=== PATIENT | male | born 1960 | race Caucasian/White ===

== ENCOUNTER 2024-10-30 12:21 | Inpatient (IN) | payer MEDICAID, MEDICARE, OTHER ==
[~2024-10-30] VITALS: Ht 172.7 cm; Wt 105.1 kg
[2024-10-30 13:03] LABS: PLATELET COUNT, AUTOMATED 241 10^3/uL (150-450)
[2024-10-30 13:26] LABS: BARBITURATES URINE NEGATIVE (NEGATIVE)
[2024-10-30 13:27] LABS: AMPHETAMINES LEVEL URINE NEGATIVE (NEGATIVE); BENZODIAZEPINES URINE NEGATIVE (NEGATIVE); CANNABINOIDS URINE NEGATIVE (NEGATIVE); COCAINE METABOLITE URINE NEGATIVE (NEGATIVE); METHADONE URINE NEGATIVE (NEGATIVE); OPIATES URINE NEGATIVE (NEGATIVE); PHENCYCLIDINE URINE NEGATIVE (NEGATIVE)
[2024-10-30 13:28] LABS: ETHYL ALCOHOL (ETHANOL) 0.004 % (0.000-0.010)
[2024-10-30 13:30] LABS: ALT/SGPT 35 U/L (7.0-40); AST/SGOT 15 U/L (<34); CALCIUM LEVEL 9.7 MG/DL (8.3-10.6); CARBON DIOXIDE LEVEL 27 MMOL/L (20-31); CHLORIDE LEVEL 103 MMOL/L (98-107); CREATININE FOR GFR 1.22 MG/DL (0.70-1.30); GLOMERULAR FILTRATION RATE 65.4 (>49); POTASSIUM SERUM 4.2 MMOL/L (3.5-5.1); SALICYLATE LEVEL < 3.0 MG/DL (<30); SODIUM LEVEL 142 MMOL/L (136-145)
[2024-10-30 13:34] LABS: VALPROIC ACID (DEPAKOTE) < 3.0 UG/ML (50.0-100.0)
[2024-10-30] MEDS ORDERED: ACETAMINOPHEN 325 MG TAB PO PRN (14:45)
[2024-10-30] MEDS ORDERED: IBUPROFEN 400 MG TAB PO PRN (14:45)
[2024-10-30] MEDS ORDERED: MOM 30 ML SUSPENSION UDC PO PRN (14:45)
[2024-10-30] MEDS ORDERED: MAALOX 30 ML SUSP *UDC PO PRN (14:45)
[2024-10-30 15:34] VITALS: BP 149/64; TEMP 97.6; O2SAT 98
[2024-10-30] MEDS: traZODone 50 MG TAB PO PRN (20:18)
[2024-10-31 06:18] VITALS: BP 143/67; TEMP 97.6; O2SAT 95
[2024-10-31] MEDS ORDERED: BUPR150T12 PO (07:47)
[2024-10-31] MEDS ORDERED: ARIP960S INJ (07:47)
[2024-10-31] MEDS ORDERED: JARD1TAB PO (07:47)
[2024-10-31] MEDS ORDERED: HOME MED LIST COMPLETE! XX SCH (07:55)
[2024-10-31] MEDS: DAPAGLIFLOZIN PROPANEDIOL 10 MG TABLET PO SCH (12:53)
[2024-10-31] MEDS: METOPROLOL TART 25 MG TABLET PO SCH (12:53)
[2024-10-31 14:37] VITALS: BP 139/79; TEMP 97.6; O2SAT 98
[2024-10-31] MEDS: buPROPion **XL** 150 MG TABLET PO SCH (17:21)
[2024-11-01 06:43] VITALS: BP 121/67; TEMP 98.5; O2SAT 95
[2024-11-01 09:25] VITALS: BP 116/60
[2024-11-01] MEDS: PREVNAR-20 VACCINE 0.5ML SYRINGE IM.IMMUN ONE (09:30)
[2024-11-01 12:28] VITALS: BP 139/68
[2024-11-01 15:00] VITALS: BP 98/60; TEMP 98; O2SAT 95
[2024-11-02] VITALS (7 sets, daily range): BP systolic 121–142; BP diastolic 65–84; TEMP 97.8–98.3; O2SAT 94–96
[2024-11-02] MEDS: GABAPENTIN 300 MG CAP PO SCH (13:06)
[2024-11-03 15:27] VITALS: BP 120/67; TEMP 97.5; O2SAT 94
[2024-11-04 06:37] VITALS: BP 146/70; TEMP 98; O2SAT 96
[2024-11-04] MEDS: GABAPENTIN 300 MG CAP PO SCH (08:42)
[2024-11-04 16:28] VITALS: BP 136/74; TEMP 97.9; O2SAT 97
[2024-11-05 06:37] VITALS: BP 132/77; TEMP 97.7; O2SAT 94
[2024-11-05 14:46] VITALS: BP 124/71; TEMP 97.8; O2SAT 96
[2024-11-06 06:30] VITALS: BP 114/65; TEMP 98.1; O2SAT 93
[2024-11-06 08:07] VITALS: BP 126/69
[2024-11-06 14:54] VITALS: BP 122/71; TEMP 97.6; O2SAT 98
[2024-11-07 06:22] VITALS: BP 142/73; TEMP 97.5; O2SAT 94
[2024-11-07 08:26] VITALS: BP 112/69
[2024-11-07 15:12] VITALS: BP 117/67; TEMP 97.3; O2SAT 95
[2024-11-08 06:15] VITALS: BP 143/63; TEMP 98.2; O2SAT 96
[2024-11-08 17:32] VITALS: BP 130/61; TEMP 97.8
[2024-11-09 06:22] VITALS: BP 132/70; TEMP 97.5; O2SAT 96
[2024-11-09 08:13] LABS: CHOLESTEROL LEVEL 173.0 MG/DL (<200); CHOLESTEROL RISK RATIO 3.71 (<5); LDL CHOLESTEROL 89.8 MG/DL (<100); NON-HDL-C 126.4 MG/DL; TRIGLYCERIDES LEVEL 183.0 MG/DL (<150)
[2024-11-09 15:40] VITALS: BP 122/71; TEMP 97.9; O2SAT 96
[2024-11-10 06:16] VITALS: BP 124/75; TEMP 97.1; O2SAT 95
[2024-11-10 08:10] VITALS: BP 126/58
[2024-11-10] MEDS ORDERED: ARIP1TAB PO (09:11)
[2024-11-10] MEDS ORDERED: HYDR-3363 PO (09:11)
[2024-11-10] MEDS ORDERED: FARX1TAB3 PO (09:11)
[2024-11-10] MEDS ORDERED: TRAZ-252 PO (09:11)
[2024-11-10] MEDS ORDERED: METO1TAB87 PO (09:11)
[2024-11-10] MEDS ORDERED: BUPR150T12 PO (09:11)
[2024-11-10] MEDS ORDERED: GABA-1172 PO (09:11)
== END 2024-11-10 11:00 | disposition home or self-care (01) | DRG 885 ==
LOC: M ED 12:21 → M ED INP 14:42 → M PSY 15:35
PROVIDERS: ADMIT General Practice; ATTEND General Practice
DX: F25.0 Schizoaffective disorder, bipolar type (principal); R45.851 Suicidal ideations; F41.1 Generalized anxiety disorder; F41.0 Panic disorder [episodic paroxysmal anxiety]; I10 Essential (primary) hypertension; R73.03 Prediabetes; Z90.49 Acquired absence of other specified parts of digestive tract; Z79.899 Other long term (current) drug therapy